=== PATIENT | male | born 1980 | race African-American/Black ===

== ENCOUNTER 2025-01-08 09:53 | Emergency (ER) | payer MEDICAID, SELFPAY ==
[2025-01-08] VITALS (35 sets, daily range): BP systolic 109–164; BP diastolic 78–105; PULSE 96–981; RESP 18; TEMP 37.1; O2SAT 95–100
--- NOTE | 2025-01-08 10:28 | W.ED.GENAD ---
Discharge Plan Disposition Patient Disposition: Transfer-Acute Inpatient Care Specific Acute Inpt Facility: [facility] Condition: Stable Discharge Details Clinical Impression: Dehiscence of amputation stump of right lower extremity Primary Care Provider: Clarence Soto ED Provider: Esther Oneill Home Meds and New Rx's Prescriptions: No Action atorvastatin 40 mg tablet 40 mg PO DAILY Patient Comments: TAKE 1 TABLET BY MOUTH DAILY quetiapine 300 mg tablet 300 mg PO BID Patient Comments: TAKE 1 TABLET BY MOUTH TWICE DAILY hydrocodone-acetaminophen 10-325 mg tablet 1 tab PO TID Patient Comments: TAKE 1 TABLET BY MOUTH THREE TIMES DAILY NEEDED FOR PAIN mirtazapine 45 mg tablet 45 mg PO DAILY Patient Comments: TAKE 1 TABLET BY MOUTH EVERY NIGHT AT BEDTIME duloxetine 60 mg capsule,delayed release(DR/EC) 60 mg PO DAILY Patient Comments: TAKE 1 CAPSULE BY MOUTH DAILY. DO NOT CRUSH OR CHEW HPI General Mode of arrival: ambulatory. Date/Time Provider Initiated Documentation: 01/08/25 10:07. Limitations to Documentation: no limitations. Information obtained by: patient and old records reviewed. 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 The patient reports that he lost his balance while getting out of the shower this morning and fell to the ground, and split open the incision on his stump. He reports that he did not lose consciousness, strike his head, or injure any other part of his body. He was brought in by EMS with bleeding controlled, did receive a total of 10 mg of morphine for pain management. The patient takes opioids at baseline for management of his amputation associated pain. Prior to this event patient was in his normal state of health. Exam: Gen: Awake and alert, in no apparent distress HEENT: Non-icteric sclera Neck: Supple Lungs: No apparent respiratory distress, normal respiratory effort. CV: Appears well perfused Abdomen: Non-distended MSK: Moves 4 extremities without apparent limitation in ROM. The patient is status post right BKA, with a well-healing stump, with an approximately 5 cm laceration along the surgical incision with visible fat, minimal venous oozing appreciated. Skin: Visualized skin without rashes, cyanosis. Neuro: No obvious focal deficits or facial asymmetry. Speaks in full, clear sentences. Psych: Appropriate for situation. MDM: This is a 44-year-old male patient presenting for evaluation of a laceration/disruption of his BKA surgical incision after a fall. Reassuringly he has no other traumatic injuries as a result of this fall, and his injury was not preceded by any dizziness, chest pain, loss of consciousness, or other medical abnormality. My examination is most concerning for a laceration, the wound was thoroughly cleansed using 10 cc 1% lidocaine with epi and I see no evidence of foreign body. I have a low concern for fracture. ED Course: I rechecked orthopedics who reviewed the photos of the injury, and recommend transfer ED to ED to their facility for formal surgical washout. The patient did require numerous doses of morphine for pain management, is on opioids at baseline for postsurgical pain. The wound was left open at orthopedics request with saline and gauze, and he did receive a dose of Ancef at our facility. Patient was transferred via EMS to [facility], accepting physician Dr. Amy Escamilla. Patient left our facility under the care of EMS, remained hemodynamically stable while under my care. Esther Oneill MD Related Data Home Medications ?Medication ?Instructions ?Recorded ?Confirmed atorvastatin 40 mg tablet 40 mg PO DAILY 01/08/25 01/08/25 duloxetine 60 mg capsule,delayed 60 mg PO DAILY 01/08/25 01/08/25 release hydrocodone 10 mg-acetaminophen 1 tab PO TID 01/08/25 01/08/25 325 mg tablet mirtazapine 45 mg tablet 45 mg PO DAILY 01/08/25 01/08/25 quetiapine 300 mg tablet 300 mg PO BID 01/08/25 01/08/25 General Stated Complaint: Laceration AILEEN: 3 Course Vital Signs Vital signs: Vital Signs Temperature 37.1 C 01/08/25 09:54 Pulse 981 H 01/08/25 09:54 Respiratory Rate 18 01/08/25 09:54 Blood Pressure 148/96 H 01/08/25 09:54 Pulse Oximetry 98 01/08/25 09:54 Temperature 37.1 C 01/08/25 09:54 Temperature Source Oral 01/08/25 09:54 Pulse 981 H 01/08/25 09:54 Respiratory Rate 18 01/08/25 09:54 Blood Pressure 148/96 H 01/08/25 09:54 Pulse Oximetry 98 01/08/25 09:54 Medical Decision Making Quality:SDOH Health Related Social Needs: No Data to Display PFSH All Active Problems (Updated 01/08/25 @ 15:22 by Esther Oneill MD) Dehiscence of amputation stump of right lower extremity (Acute) Social History Smoking risk assessment performed?: No Housing: homeless
[2025-01-08] MEDS: MORPHine 4 MG/ML SYR IVP ×3 (10:35→12:36)
[2025-01-08] MEDS: MORPHine 10 MG/ML VIAL 6 MG IVP (14:02)
[2025-01-08] MEDS: Lidocaine 1% Pres-Free W/EPI 1/200,000 30 ML VIAL IJ (14:12)
== END 2025-01-08 16:30 | disposition short-term general hospital (02) ==
PROVIDERS: Emergency Provider Emergency Medicine; PCP Family Medicine
DX: T87.81 Dehiscence of amputation stump (principal); Z89.511 Acquired absence of right leg below knee; W18.39XA Other fall on same level, initial encounter; Y93.E1 Activity, personal bathing and showering; Y92.012 Bathroom of single-family (private) house as the place of occurrence of the external cause; Z59.00 Homelessness unspecified
CPT/HCPCS: 96365; 96375; 96376; 99285; J0690; J2004; J2270